=== PATIENT | male | born 1930 | race Caucasian/White ===

== ENCOUNTER 2017-08-11 08:07 | Emergency (ER) | payer MEDICARE ==
[~2017-08-11] VITALS: Ht 170.2 cm; Wt 61.1 kg
[2017-08-11 08:11] VITALS: BP 128/74
== END 2017-08-11 09:07 | disposition home or self-care (01) ==
LOC: ED 09:00
DX: M19.042 Primary osteoarthritis, left hand (principal); I10 Essential (primary) hypertension; E78.5 Hyperlipidemia, unspecified
CPT/HCPCS: 99284